=== PATIENT | female | born 1995 | race Two or more races ===

== ENCOUNTER 2022-09-12 19:49 | Emergency (ER) | payer OTHER ==
[~2022-09-12] VITALS: Ht 162.6 cm; Wt 68.0 kg
--- NOTE | 2022-09-12 20:45 | NUR ---
BLOOD COLLECTED AND SENT TO LAB
--- NOTE | 2022-09-12 20:45 | NUR ---
Dandre mercedes in [facility] - 09/12/22 at 2101 by BUD COVID SWAB DONE AND SENT TO LAB
--- NOTE | 2022-09-12 20:45 | NUR ---
URINE COLLECTED AND SENT TO LAB
[2022-09-12 20:54] LABS: BASOPHILS % (AUTO) 0.4 % (0.0-2.0); EOSINOPHILS % (AUTO) 0.5 % (0.0-6.0); HEMATOCRIT 40 % (33-45); HEMOGLOBIN 13.1 g/dL (11.5-14.8); LYMPHOCYTES # (AUTO) 2.7 K/uL (0.8-4.8); LYMPHOCYTES % (AUTO) 31.7 % (20.0-44.0); MEAN CORPUSCULAR HGB CONC 33 g/dl (31.0-36.0); MEAN CORPUSCULAR VOLUME 89 fL (82-100); MONOCYTES # (AUTO) 0.6 K/uL (0.1-1.30); MONOCYTES % (AUTO) 7.6 % (2.0-12.0); NEUTROPHILS % (AUTO) 59.8 % (43.0-81.0); PLATELET COUNT (AUTO) 288 K/uL (150-450); RED BLOOD CELL COUNT(AUTO) 4.47 MIL/uL (4.0-5.2); WHITE BLOOD COUNT (AUTO) 8.4 K/uL (4.3-11.0)
[2022-09-12 21:01] LABS: CALCIUM, SERUM 8.9 mg/dL (8.5-10.1); CARBON DIOXIDE 25 mmol/L (21-32); CHLORIDE 105 mmol/L (98-107); CREATININE 0.8 mg/dL (0.6-1.3); GLUCOSE 95 mg/dL (74-106); POTASSIUM 3.8 mmol/L (3.5-5.1); SODIUM SERUM 140 mmol/L (136-145); UREA NITROGEN, BLOOD 10 mg/dL (7-18)
[2022-09-12] MEDS ORDERED: CT SWABBABLE VALVE TRANS SET 1 EA INFUS.SET MC ONE (22:36)
[2022-09-12] MEDS ORDERED: IOHEXOL-300 100 ML VIAL IV ONE (22:36)
[2022-09-12] MEDS ORDERED: IV NS 0.9% 250 ML IV ONE (22:36)
[2022-09-12] MEDS ORDERED: IBUPROFEN 600 MG TABLET PO ONE (23:30)
[2022-09-12] MEDS ORDERED: IBUPROFEN 600 MG TABLET ONE (23:32)
[2022-09-12 23:33] VITALS: BP 131/60
--- NOTE | 2022-09-12 23:33 | NUR ---
Patient discharged to home in stable condition. Written and verbal after care instructions given. Patient verbalizes understanding of instruction.
== END 2022-09-12 23:43 | disposition home or self-care (01) ==
LOC: ER 19:51
DX: R07.9 Chest pain, unspecified (principal); F41.9 Anxiety disorder, unspecified
CPT/HCPCS: 99285; 71260; 71045; 93005; 85025; 80048; 85378; 84703; 36415; 84484; J7050; Q9967